=== PATIENT | male | born 1995 | race Two or more races ===

== ENCOUNTER 2024-07-27 17:54 | Emergency (ER) | payer OTHER ==
[~2024-07-27] VITALS: Ht 157.5 cm; Wt 68.0 kg
[2024-07-27] MEDS ORDERED: PHENTERMINE PO (18:03)
[2024-07-27] MEDS ORDERED: LOPE2CAP14 PO (19:23)
[2024-07-27] MEDS ORDERED: LOPERAMIDE HCL 2 MG CAPSULE ONE (19:26)
[2024-07-27] MEDS: LOPERAMIDE HCL 2 MG CAPSULE PO ONE (19:28)
[2024-07-27 19:38] VITALS: BP 142/81; TEMP 98.7; O2SAT 98
== END 2024-07-27 19:38 | disposition home or self-care (01) ==
LOC: ER 17:54
DX: R19.7 Diarrhea, unspecified (principal)
CPT/HCPCS: A4606; A4663